=== PATIENT | female | born 2000 | race Caucasian/White ===

== ENCOUNTER 2020-12-15 10:11 | Emergency (ER) | payer BC ==
[2020-12-15 10:22] VITALS: BP 120/78; PULSE 85; TEMP 98.7; BMI 25.8
[2020-12-15] MEDS ORDERED: KETOROLAC TROMETHAMINE 30 MG/1 ML VIAL IM ONE (11:06)
[2020-12-15] MEDS ORDERED: TAMSULOSIN HCL 0.4 MG CAP PO ONE (11:06)
[2020-12-15] MEDS ORDERED: KETOROLAC TROMETHAMINE 30 MG/1 ML VIAL IVPUSH ONE (11:10)
[2020-12-15] MEDS ORDERED: PHENAZOPYRIDINE HCL 100 MG TABLET (FP) PO ONE (11:11)
[2020-12-15 11:32] LABS: BASO % 1.1 % (0-2.0); EOS % 1.7 % (0-4.5); HEMATOCRIT 39.5 % (32.4-45.2); HEMOGLOBIN 13.4 GM/dL (10.7-15.3); LYMPH % 13.3 % (8-40); MCH 29.7 pg (25.7-33.7); MEAN CELL VOLUME 87.4 fl (80-96); MEAN PLT VOLUME 8.5 fl (7.5-11.1); MONO % 6.8 % (3.8-10.2); NEUT % 77.1 % (42.8-82.8); PLATELET COUNT 230 10^3/uL (134-434); RBC 4.52 M/mm3 (3.60-5.2); RDW 13.8 % (11.6-15.6); WHITE BLOOD COUNT 8.3 K/mm3 (4.0-10.0)
[2020-12-15 11:51] LABS: CALCIUM 9.5 mg/dL (8.5-10.1)
[2020-12-15 11:52] LABS: ALBUMIN 3.7 g/dl (3.4-5.0); BLOOD UREA NITROGEN 11.4 mg/dL (7-18)
[2020-12-15 11:55] LABS: CREATININE 0.7 mg/dL (0.55-1.3)
[2020-12-15 11:57] LABS: BILIRUBIN,TOTAL 0.4 mg/dL (0.2-1); TOT PROT 7.3 g/dl (6.4-8.2)
[2020-12-15 12:02] LABS: EPI CELLS 8 /uL (0-25.1); HYALINE CASTS 5 /uL (0-3.1); URINE APPEARANCE CLOUDY; URINE BACTERIA 759 /uL (0-1359); URINE BILIRUBIN NEGATIVE (NEGATIVE); URINE COLOR YELLOW; URINE GLUCOSE (UA) NEGATIVE (NEGATIVE); URINE KETONE NEGATIVE (NEGATIVE); URINE LEUK ESTERASE 3+ (NEGATIVE); URINE NITRITE NEGATIVE (NEGATIVE); URINE PROTEIN 1+ (NEGATIVE); URINE RBC 191 /uL (0-23.9); URINE UROBILINOGEN 0.2 mg/dL (0.2-1.0); URINE WBC 744 /uL (0-25.8)
[2020-12-15 12:04] LABS: HCG,QUALITATIVE URINE Negative
== END 2020-12-15 13:34 | disposition home or self-care (01) ==
LOC: JER 10:11
PROC: 3E023NZ Introduction of Analgesics, Hypnotics, Sedatives into Muscle, Percutaneous Approach (ICD-10-PCS; principal; 2020-12-15)
PROC: 3E0333Z Introduction of Anti-inflammatory into Peripheral Vein, Percutaneous Approach (ICD-10-PCS; 2020-12-15)
DX: N30.00 Acute cystitis without hematuria (principal); M54.50 Low back pain, unspecified
CPT/HCPCS: 36415; 76775-TC; 80053; 81003; 84703; 85025; 87086; 87186; 99284-25

== ENCOUNTER 2022-01-12 16:36 | Emergency (ER) | payer BC ==
[2022-01-12 17:06] VITALS: BP 127/76; PULSE 88; RESP 18; TEMP 97.9; BMI 27.3
== END 2022-01-12 21:29 | disposition home or self-care (01) ==
LOC: JER 16:36
DX: J03.90 Acute tonsillitis, unspecified (principal)
CPT/HCPCS: 0241U-QW; 99283-25